=== PATIENT | male | born 1985 | race Caucasian/White ===

== ENCOUNTER 2024-07-29 08:17 | Emergency (ER) | payer OTHER, SELFPAY ==
[2024-07-29] VITALS (15 sets, daily range): BP systolic 113–148; BP diastolic 56–91; PULSE 65–93; TEMP 37.1; O2SAT 93–98; BMI 28.1
--- NOTE | 2024-07-29 08:31 | XR_ITS ---
[address] [address] Patient Name: ZACARIAS MINER MRN: [id number] date: 1985 Sex: M Assigned Patient Location: ER Current Patient Location: ED.MAIN Accession/Order Number: [id number] Exam Date: 07/29/2024 08:35 Report Date: 07/29/2024 09:28 At the request of: MONICA ROBERTS Procedure: XR chest 1V EXAMINATION: XR chest 1V REASON FOR EXAM: chest pain COMPARISON: 12/27/2011 FINDINGS: Single projection. Cardiomediastinal shadows are normal with no pneumothorax or pneumomediastinum. No focal infiltrate or effusion. Bony thorax intact. XR/XR chest 1V IMPRESSION: No acute or focal cardiopulmonary findings. Electronically authenticated by: LEAH LORENZANA Date: 07/29/2024 09:28
--- NOTE | 2024-07-29 08:31 | ECG_ITS ---
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
--- NOTE | 2024-07-29 08:32 | ED.CHESTPAI1 ---
HPI - Chest Pain General Chief Complaint: Chest Pain Stated Complaint: CHEST PAIN Time Seen by Provider: 07/29/24 08:27 Source: patient Mode of arrival: walk-in Limitations: no limitations History of Present Illness HPI narrative: 38-year-old male presents to the emergency department for chest pain. It began a few hours ago when he was using cocaine. He points to the upper sternal region and describes it as a pressure and it is continuous. No cough or fever. He has not had any injury. Related Data Home Medications ?Medication ?Instructions ?Recorded ?Confirmed No Known Home Medications 07/29/24 07/29/24 Allergies Allergy/AdvReac Type Severity Reaction Status Date / Time No Known Drug Allergies Allergy Verified 07/29/24 08:25 Review of Systems ROS Narrative A ten point review of systems is negative except as noted above. PFSH PFSH Social History Little interest or pleasure in doing things: not at all Feeling down, depressed, or hopeless: not at all Exam Narrative Exam Narrative: Nurses note and vital signs reviewed and patient is not hypoxic. General: The patient appears in no apparent distress. Patient is resting on cart. Skin: Warm, dry, no pallor noted. There is no rash noted. Head: Normocephalic, atraumatic Eye: Normal conjunctiva, no drainage Ears, Nose, Mouth, and Throat: oral mucosa is moist. Nares patent. Cardiovascular: Regular Rate and Rhythm, not tachycardic Respiratory: Patient is in no distress, no accessory muscle use, lungs are clear to auscultation, no wheezing, rales or rhonchi Back: non-tender GI: Soft and nontender Musculoskeletal: The patient has no evidence of calf tenderness, no pitting edema, symmetrical pulses noted bilaterally Neurological: A&O normal speech Psychiatric: Cooperative Constitutional Vital Signs, click to edit/add: Last Vital Signs Temp 98.7 F 07/29/24 08:26 Pulse 68 07/29/24 11:00 Resp 17 07/29/24 11:00 BP 127/74 07/29/24 11:00 Pulse Ox 97 07/29/24 11:00 O2 Del Method Room Air 07/29/24 08:30 Course Vital Signs Vital signs: Vital Signs Temperature 98.7 F 07/29/24 08:26 Pulse Rate 91 H 07/29/24 08:26 Respiratory Rate 16 07/29/24 08:26 Blood Pressure 142/87 H 07/29/24 08:26 Pulse Oximetry 97 07/29/24 08:26 Oxygen Delivery Method Room Air 07/29/24 08:26 Temperature 98.7 F 07/29/24 08:26 Pulse Rate 68 07/29/24 11:00 Respiratory Rate 17 07/29/24 11:00 Blood Pressure 127/74 07/29/24 11:00 Pulse Oximetry 97 07/29/24 11:00 Oxygen Delivery Method Room Air 07/29/24 08:30 MDM - Chest Pain MDM Narrative Medical decision making narrative: 2 sets of troponin and the rest of his workup is negative. He is being discharged home and was cautioned against cocaine use. Treatment diagnosis and follow-up were discussed with the patient. Differential Diagnosis Differential diagnosis: Likely pneumothorax, unstable angina pectoris, atypical chest pain, st elevation myocardial infarction, costochondritis and chest pain Lab Data Attestation: I reviewed the patient's lab results. Labs: Lab Results 07/29/24 07/29/24 Range/Units 08:40 09:45 WBC 11.6 H (4.0-11.0) 10^3/uL RBC 4.61 L (4.70-6.10) 10^6/uL Hgb 14.4 (14.0-18.0) g/dL Hct 41.6 L (42.0-54.0) % MCV 90.2 (80.0-94.0) fL MCH 31.2 (25.9-34.0) pg MCHC 34.6 (29.9-35.2) g/dL RDW 11.9 (11.0-15.0) % Plt Count 208 (150-450) 10^3/uL MPV 9.2 L (9.5-13.5) fL Neut % (Auto) 70.3 (43.0-75.0) % Lymph % (Auto) 21.7 (20.5-60.0) % Greenlee % (Auto) 7.0 (1.7-12.0) % Eos % (Auto) 0.3 L (0.9-7.0) % Baso % (Auto) 0.4 (0.2-2.0) % Neut # (Auto) 8.2 H (1.4-6.5) 10^3/uL Lymph # (Auto) 2.5 (1.2-3.8) 10^3/uL Greenlee # (Auto) 0.8 (0.3-0.8) 10^3/uL Eos # (Auto) 0.0 (0.0-0.7) 10^3/uL Baso # (Auto) 0.1 (0.0-0.1) 10^3/uL Abs Immat Gran (auto) 0.03 (0.00-0.03) 10^3/uL Imm/Tot Granulo (auto) 0.3 (0.0-0.5) % Sodium 143 (136-145) mmol/L Potassium 3.5 (3.5-5.1) mmol/L Chloride 105 (98-107) mmol/L Carbon Dioxide 29.7 (21.0-32.0) mmol/L Anion Gap 11.8 BUN 15.0 (7.0-18.0) mg/dL Creatinine 1.09 (0.70-1.30) mg/dL Est GFR ( Amer) >60 (>=60 mL/min/1.73m^2) Est GFR (Non-Af Amer) >60 (>=60 mL/min/1.73m^2) BUN/Creatinine Ratio 13.8 Glucose 100 (74-106) mg/dL Calcium 8.6 (8.5-10.1) mg/dL Troponin I High Sens 41.4 42.3 (4.0-76.1) pg/mL Imaging Data Chest x-ray: Radiologist's impression: ITS Impressions Chest X-Ray 07/29/24 08:31 IMPRESSION: No acute or focal cardiopulmonary findings. Electronically authenticated by: LEAH LORENZANA Date: 07/29/2024 09:28 ECG Data Attestation: I personally reviewed and interpreted this ECG as follows: (EKG on my interpretation shows sinus rhythm with a rate of 89 and no acute change.) Heart Score History: Slightly/Non-Suspicious ECG: Normal Age: <45 years Risk Factors: 1 or 2 Risk Factors Troponin: <Normal Limit Total Heart Score Recommendations & Risks:: 1 Discharge Plan Discharge Chief Complaint: Chest Pain Clinical Impression: Chest pain, Cocaine abuse Patient Disposition: Home, Self-Care Time of Disposition Decision: 11:10 Condition: Good Mode of Transportation: Private Vehicle Prescriptions / Home Meds: No Action No Known Home Medications Print Language: Estonian Instructions: Chest Pain (ED), Cocaine Use Disorder (ED) Referrals: NESTOR ANDERSEN [Physician] - 1 week
[2024-07-29 08:45] LABS: Basophils Absolute Auto 0.1 10^3/uL (0.0-0.1); Basophils Percent Auto 0.4 % (0.2-2.0); Eosinophils Percent Auto 0.3 % (0.9-7.0); Hematocrit 41.6 % (42.0-54.0); Hemoglobin 14.4 g/dL (14.0-18.0); Immature Granulocytes Abs Auto 0.03 10^3/uL (0.00-0.03); Immature Granulocytes Pct Auto 0.3 % (0.0-0.5); Lymphocytes Absolute Auto 2.5 10^3/uL (1.2-3.8); Lymphocytes Percent Auto 21.7 % (20.5-60.0); Mean Corpuscular HGB Conc 34.6 g/dL (29.9-35.2); Mean Corpuscular Hemoglobin 31.2 pg (25.9-34.0); Mean Corpuscular Volume 90.2 fL (80.0-94.0); Mean Platelet Volume 9.2 fL (9.5-13.5); Monocytes Absolute Auto 0.8 10^3/uL (0.3-0.8); Neutrophils Absolute Auto 8.2 10^3/uL (1.4-6.5); Neutrophils Percent Auto 70.3 % (43.0-75.0); Platelet Count 208 10^3/uL (150-450); Red Blood Count 4.61 10^6/uL (4.70-6.10); Red Cell Distribution Width 11.9 % (11.0-15.0); White Blood Count 11.6 10^3/uL (4.0-11.0)
[2024-07-29] MEDS: NITROGLYCERIN 0.4 MG BOTTLE SL ×2 (08:47→09:48)
[2024-07-29] MEDS: ASPIRIN 81 MG TAB.CHEW 324 MG PO (08:47)
[2024-07-29 09:03] LABS: Anion Gap 11.8; BUN Creatinine Ratio 13.8; Calcium 8.6 mg/dL (8.5-10.1); Carbon Dioxide 29.7 mmol/L (21.0-32.0); Chloride 105 mmol/L (98-107); Estimated GFR (African America >60 (>=60 mL/min/1.73m^2); Estimated GFR (Non-African Ame >60 (>=60 mL/min/1.73m^2); Glucose 100 mg/dL (74-106); Potassium 3.5 mmol/L (3.5-5.1); Sodium 143 mmol/L (136-145); Troponin I High Sensitivity 41.4 pg/mL (4.0-76.1)
[2024-07-29 10:09] LABS: Troponin I High Sensitivity 42.3 pg/mL (4.0-76.1)
[2024-07-29] MEDS: KETOROLAC TROMETHAMINE 30 MG/ML VIAL IVP (10:14)
== END 2024-07-29 11:19 | disposition home or self-care (01) ==
PROVIDERS: Emergency Provider Emergency Medicine
DX: R07.9 Chest pain, unspecified (principal); F14.10 Cocaine abuse, uncomplicated
CPT/HCPCS: 36415; 71045; 80048; 84484; 85025; 93005; 96374; 99285; J1885